=== PATIENT | female | born 1985 | race African-American/Black ===

== ENCOUNTER 2017-05-16 09:27 | Emergency (ER) | payer MEDICAID ==
[~2017-05-16] VITALS: Ht 167.6 cm; Wt 86.2 kg
[2017-05-16 09:32] VITALS: Ht 167.6 cm; Wt 86.2 kg
[2017-05-16 11:52] VITALS: BP 118/87
== END 2017-05-16 11:52 | disposition home or self-care (01) ==
LOC: ED 09:27
DX: S30.814A Abrasion of vagina and vulva, initial encounter (principal); Z11.3 Encounter for screening for infections with a predominantly sexual mode of transmission; X58.XXXA Exposure to other specified factors, initial encounter; Y93.89 Activity, other specified; Y92.89 Other specified places as the place of occurrence of the external cause; Y99.8 Other external cause status
CPT/HCPCS: 87491; 87591